=== PATIENT | female | born 1930 | race Caucasian/White ===

== ENCOUNTER 2017-08-09 08:19 | Emergency (ER) | payer OTHER ==
[~2017-08-09] VITALS: Ht 167.6 cm; Wt 63.5 kg
--- NOTE | 2017-08-09 08:50 | NUR ---
[id number] FROM HOME: UNCONTROLLED NOSE BLEED SINCE AM. TAKES WARFARIN 5 MG. NO TRAUMA. PER PATIENT SHE STARTED BLEEDING AROUND 0715 TODAY. NO CO DIZZINESS. VSS
[2017-08-09] MEDS ORDERED: LABETALOL HCL IV 100MG VIAL ONE (08:55)
[2017-08-09] MEDS ORDERED: OXYMETAZOLINE HCL NASAL SPRAY 30 ML BOTTLE NS ONE ×2 (08:56→09:00)
[2017-08-09] MEDS ORDERED: LABETALOL HCL IV 100MG VIAL IV ONE (09:00)
[2017-08-09 09:01] LABS: BASOPHILS % (AUTO) 0.3 % (0.0-2.0); EOSINOPHILS # (AUTO) 0.2 /CMM (0.0-0.7); EOSINOPHILS % (AUTO) 1.5 % (0.0-6.0); HEMATOCRIT 38 % (33-45); HEMOGLOBIN 12.2 g/dL (11.5-14.8); LYMPHOCYTES # (AUTO) 1.8 /CMM (0.8-4.8); LYMPHOCYTES % (AUTO) 17.7 % (20.0-44.0); MEAN CORPUSCULAR HEMOGLOBIN 30 PG (26.0-33.0); MEAN CORPUSCULAR HGB CONC 33 g/dl (31.0-36.0); MEAN CORPUSCULAR VOLUME 92 fL (82-100); MONOCYTES # (AUTO) 0.6 /CMM (0.1-1.30); MONOCYTES % (AUTO) 6.1 % (2.0-12.0); NEUTROPHILS # (AUTO) 7.6 /CMM (1.8-8.9); NEUTROPHILS % (AUTO) 74.4 % (43.0-81.0); PLATELET COUNT (AUTO) 164 /CMM (150-450); RDW COEFFICIENT OF VARIATION 16.4 (11.5-15.0); RED BLOOD CELL COUNT(AUTO) 4.09 MIL/uL (4.0-5.2); WHITE BLOOD COUNT (AUTO) 10.3 K/uL (4.3-11.0)
[2017-08-09] MEDS ORDERED: SILVER NITRATE APPLICATOR 1 EA BOX ONE (09:13)
[2017-08-09 09:21] LABS: INR 2.38 (0.87-1.13)
[2017-08-09 09:54] VITALS: BP 136/79
--- NOTE | 2017-08-09 09:54 | NUR ---
Patient discharged to home in stable condition. Written and verbal after care instructions given. Patient verbalizes understanding of instruction.IV removed. Catheter intact and site benign. Pressure and 4x4 applied to site. No bleeding noted.
== END 2017-08-09 09:55 | disposition home or self-care (01) ==
LOC: ER 08:21
DX: R04.0 Epistaxis (principal); I10 Essential (primary) hypertension; I48.91 Unspecified atrial fibrillation; Z79.01 Long term (current) use of anticoagulants; Z95.4 Presence of other heart-valve replacement
CPT/HCPCS: 30901; 36415; 85025; 85610; 96374; 99284; J3490